=== PATIENT | female | born 1970 | race African-American/Black ===

== ENCOUNTER 2018-09-16 17:04 | Emergency (ER) | payer SELFPAY ==
[~2018-09-16] VITALS: Ht 160 cm; Wt 79.0 kg
[2018-09-16 17:42] VITALS: BP 116/75
== END 2018-09-17 00:14 | disposition left against medical advice (07) ==
LOC: ER 17:04
DX: Z53.21 Procedure and treatment not carried out due to patient leaving prior to being seen by health care provider (principal)